=== PATIENT | male | born 1970 | race Two or more races ===

== ENCOUNTER 2024-10-25 08:53 | Outpatient (AMB) | payer MEDICAID, SELFPAY ==
--- NOTE | 2024-10-04 09:55 | PD.ORTHCLVIS ---
Vital signs 10/25/24 09:38 Height 1.73 m Height Method Stated Weight 112.094 kg Weight Measurement Method Standing Scale BMI 37.5 BP 113/76 Blood Pressure Source Automatic Cuff Blood Pressure Location Right Upper Arm Position Sitting Respiration 18 Pulse 80 Pulse Source Monitor Temp 98.0 F Temp Source Temporal Artery Scan Pulse Oximetry (%) 97 Oxygen Delivery Method Room Air Med/Allergies Allergies & Medications Allergies No Known Drug Allergies Allergy (Verified 10/25/24 09:38) Medication Reconciliation baclofen 10 mg tablet 10 mg PO QHS 10/25/24 [History Confirmed 10/25/24] ibuprofen 800 mg tablet 800 mg PO Q8H 10/25/24 [History Confirmed 10/25/24] semaglutide 1 mg/dose (4 mg/3 mL) subcutaneous pen injector (Ozempic) 1 mg subcut QWEEK 10/25/24 [History Confirmed 10/25/24] Subjective Visit Visit for: new patient and hip Immunization / Flu Flu Vaccine in the Last 12 Months: No Flu Vaccine Exclusion Criteria: Refused by Patient History of Present Illness Chief complaint: 2 MONTH FRACTURE OF HIP Date of injury / onset of symptoms: 2 MONTHS AGO Patient is a 54-year-old male who had a pubic root fracture of his right hip after a 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 He reports that he was using crutches for 2 weeks and then started Walking Subsequently. He did not go to the ER. He was found to have a acetabular pubic root fracture with living water. It has been 7 weeks since that injury. He reports he has no pain at all Personal History Occupation: UNEMPLOYED Pain Pain level (0-10): 8 Pain duration: COMES AND GOES Pain location: groin, inside (medial), outside (lateral), anterior and posterior Pain quality: sharp, dull and aching Pain timing: increases with activity Associated signs & symptoms: weakness Ambulatory data Ambulatory device: none Treatments Improvement with previous injections: No Improvement with PT: No Improvement with NSAIDS: no Review of Systems Review of Systems: All systems negative unless otherwise noted in HPI. Exam Exam Patient is in no acute distress and is cooperative with the examination today. Breathing is nonlabored. In no respiratory distress. Patient has no paraspinal tenderness. Spinal deformity [cannot] be appreciated. The gait of the patient is [nonantalgic] Bilateral extremities were evaluated and demonstrates sensation intact to light touch. Palpable pedal pulses are present. No significant edema is present. Bilateral knees were examined and the patient has full strength and range of motion.. The left hip was examined. Patient was able to flex to 90 degrees, adduct to 30 degrees, abduct to 40 degrees, internally rotate to 20 degrees, and externally rotate to 20 degrees. Patient has a negative logroll. Stinchfield is negative. The patient is nontender diffusely to touch. The right hip was examined. Patient was able to flex to [90] degrees, adduct to [30] degrees, abduct to [40] degrees, internally rotate to [20] degrees, and externally rotate to [20] degrees. Patient has a [negative] logroll. The stinchfield is [negative]. The CT from [facility] imaging was reviewed by me today. This demonstrates a right pubic root fracture. It is nondisplaced but quite comminuted. Assessment and Plan Problem List (1) Closed right acetabular fracture: Status: Acute Plan: Patient is a 54-year-old male with a right acetabular fracture several weeks ago. He did not seek any treatment initially and did not go to the emergency room. He was found to have a comminuted right pubic root fracture. We will treat this nonoperatively likely as it is 7 weeks since the injury. He is walking and has no pain at all. I would like to see his x-rays to see if this has shifted at all Plan We will see him back after his x-rays are done Office Procedures GNS Level of Care Nursing/Assessment Patient Status: Established Patient Nursing Assessment/Reassesment: Medication Reconciliation, Update PMH in EMR and Vital Signs Coordination of Care: Complex Care and Chronic Disease 1-5, Education Complex Pt/Fam, Consent,records obtained, informed consent, Results/Orders obtained and Staff clarify orders Special Needs: Language special needs Established Patient Charge Established Patient Point Assignment: 95 Established Patient Point Charge: EP Level 3 (80-115) Past Medical History Past Medical History Have you ever been diagnosed with any of the following: Respiratory Problems Smoking: No Smoking Exposure: No Endocrine Problems Diabetes Mellitus Type 2: Yes
[2024-10-25 09:38] VITALS: BP 113/76; PULSE 80; RESP 18; TEMP 36.7; O2SAT 97; BMI 37.5
== END 2024-10-25 09:56 | disposition home or self-care (01) ==
LOC: HODSRG 08:53
PROVIDERS: Supervising Provider Orthopaedic Surgery Adult Reconstructive Orthopaedic Surgery; Visit Provider Orthopaedic Surgery Adult Reconstructive Orthopaedic Surgery
DX: S32.401A Unspecified fracture of right acetabulum, initial encounter for closed fracture (principal); W17.89XA Other fall from one level to another, initial encounter; Y93.89 Activity, other specified; E11.9 Type 2 diabetes mellitus without complications
CPT/HCPCS: 99213; G0463

== ENCOUNTER → 2024-10-29 | Outpatient (CLI) | payer MEDICAID, SELFPAY ==
--- NOTE | 2024-10-29 | XR_ITS ---
Examination: Pelvis 3 views Technique one AP THORPE SALVATORE pelvis 3 views Exam date and time: October 29, 2024 1326 hours INDICATIONS: History pelvis fracture FINDINGS: Minimal bilateral hip osteoarthritis No hip fractures or hip dislocations Old fracture right inferior pubic ramus No acute pelvic fractures IMPRESSION: No acute pelvic fracture
== END | disposition home or self-care (01) ==
LOC: CDIM 10:53
PROVIDERS: PCP Nurse Practitioner Family; Referring Provider Orthopaedic Surgery Adult Reconstructive Orthopaedic Surgery; Visit Provider Orthopaedic Surgery Adult Reconstructive Orthopaedic Surgery
DX: Z87.81 Personal history of (healed) traumatic fracture (principal)
CPT/HCPCS: 72190

== ENCOUNTER 2024-11-08 15:34 | Outpatient (AMB) | payer MEDICAID, SELFPAY ==
--- NOTE | 2024-11-08 15:36 | PD.ORTHCLVIS ---
Vital signs 11/08/24 15:37 Height 1.73 m Height Method Stated Weight 112.151 kg Weight Measurement Method Standing Scale BMI 37.4 BP 105/68 Blood Pressure Source Automatic Cuff Blood Pressure Location Left Upper Arm Position Sitting Respiration 18 Pulse 65 Pulse Source Monitor Temp 98.0 F Temp Source Temporal Artery Scan Pulse Oximetry (%) 95 Oxygen Delivery Method Room Air Med/Allergies Allergies & Medications Allergies No Known Drug Allergies Allergy (Verified 11/08/24 15:37) Medication Reconciliation baclofen 10 mg tablet 10 mg PO QHS 10/25/24 [History Confirmed 11/08/24] ibuprofen 800 mg tablet 800 mg PO Q8H 10/25/24 [History Confirmed 11/08/24] semaglutide 1 mg/dose (4 mg/3 mL) subcutaneous pen injector (Ozempic) 1 mg subcut QWEEK 10/25/24 [History Confirmed 11/08/24] Exam Exam Patient is in no acute distress and is cooperative with the examination today. Breathing is nonlabored. In no respiratory distress. Patient has no paraspinal tenderness. Spinal deformity [cannot] be appreciated. The gait of the patient is [nonantalgic] Bilateral extremities were evaluated and demonstrates sensation intact to light touch. Palpable pedal pulses are present. No significant edema is present. Bilateral knees were examined and the patient has full strength and range of motion.. The left hip was examined. Patient was able to flex to 90 degrees, adduct to 30 degrees, abduct to 40 degrees, internally rotate to 20 degrees, and externally rotate to 20 degrees. Patient has a negative logroll. Stinchfield is negative. The patient is nontender diffusely to touch. The right hip was examined. Patient was able to flex to [90] degrees, adduct to [30] degrees, abduct to [40] degrees, internally rotate to [20] degrees, and externally rotate to [20] degrees. Patient has a [negative] logroll. The stinchfield is [negative]. The CT from [facility] imaging was reviewed by me today. This demonstrates a right pubic root fracture. It is nondisplaced but quite comminuted. X-rays demonstrate a pelvis with no evidence of fractures on the 2-day views. Assessment and Plan Problem List (1) Closed right acetabular fracture: Status: Acute Plan: Patient is a 54-year-old male with a right acetabular fracture several weeks ago. He did not seek any treatment initially and did not go to the emergency room. He was found to have a comminuted right pubic root fracture. We will treat this nonoperatively likely as it is 7 weeks since the injury. He is doing well and has no pain at all. I would not recommend physical therapy as he is already exceeding expectations and has no pain at all Plan We will see him back after his x-rays are done Office Procedures GNS Level of Care Nursing/Assessment Patient Status: Established Patient Nursing Assessment/Reassesment: Medication Reconciliation, Update PMH in EMR and Vital Signs Coordination of Care: Complex Care and Chronic Disease 1-5, Education Complex Pt/Fam, Consent,records obtained, informed consent, 1 Ins Authorization, Results/Orders obtained and Staff clarify orders Special Needs: Language special needs Established Patient Charge Established Patient Point Assignment: 110 Established Patient Point Charge: Level 3 (80-115) MA Intake Visit Data Collection New Patient or Established: Established Patient (seen at [facility] within 3 years) Reason for Visit:: XRAYS RESULTS Seen by Clinical Staff ONLY (RN/MA): No [employer]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 PCP or OBGYN visit in last 3 months: Yes Hx Now: No Do You Feel Safe at Home: Yes Authorities Contacted: N/A Questionairres Past Medical History Past Medical History Have you ever been diagnosed with any of the following: Respiratory Problems Smoking: No Smoking Exposure: No Endocrine Problems Diabetes Mellitus Type 2: Yes Subjective Visit Visit for: follow up visit and x-rays Immunization / Flu Flu Vaccine in the Last 12 Months: No Flu Vaccine Exclusion Criteria: No Exclusion Criteria History of Present Illness Chief complaint: right acetabular fracture Patient is a 54-year-old male status post acetabular fracture that was treated nonoperatively. He is doing well. He has no pain. He is walking without any difficulty. He is here for x-ray follow-up of his fracture Pain Pain level (0-10): 0 Ambulatory data Ambulatory device: none Treatments Improvement with previous injections: No Improvement with PT: No Improvement with NSAIDS: no Review of Systems Review of Systems: All systems negative unless otherwise noted in HPI.
[2024-11-08 15:37] VITALS: BP 105/68; PULSE 65; RESP 18; TEMP 36.7; O2SAT 95; BMI 37.4
== END 2024-11-08 15:38 | disposition home or self-care (01) ==
LOC: HODSRG 15:34
PROVIDERS: PCP Nurse Practitioner Family; Referring Provider Nurse Practitioner Family; Supervising Provider Orthopaedic Surgery Adult Reconstructive Orthopaedic Surgery; Visit Provider Orthopaedic Surgery Adult Reconstructive Orthopaedic Surgery
DX: S32.401D Unspecified fracture of right acetabulum, subsequent encounter for fracture with routine healing (principal); X58.XXXD Exposure to other specified factors, subsequent encounter; E11.9 Type 2 diabetes mellitus without complications
CPT/HCPCS: 99213; G0463

== ENCOUNTER → 2025-01-23 | Outpatient (CLI) | payer MEDICAID, SELFPAY ==
--- NOTE | 2025-01-23 10:03 | XR_ITS ---
Examination: Hand, left 3 views Technique: Hand AP, oblique, lateral 3 views Date and time of exam: February 16, 2025 1004 hours INDICATIONS: Left hand pain beginning 3 weeks ago. FINDINGS: Mild juxta-articular bone demineralization Moderate osteoarthritis first carpometacarpal joint Mild osteoarthritis interphalangeal joints No erosive arthritis No fracture IMPRESSION: Moderate osteoarthritis first carpometacarpal joint
== END | disposition home or self-care (01) ==
PROVIDERS: PCP Family Medicine; Referring Provider Nurse Practitioner Family; Visit Provider Nurse Practitioner Family
DX: M18.12 Unilateral primary osteoarthritis of first carpometacarpal joint, left hand (principal)
CPT/HCPCS: 73130

== ENCOUNTER → 2025-03-18 | Outpatient (CLI) | payer MEDICAID, SELFPAY ==
--- NOTE | 2025-03-18 11:15 | XR_ITS ---
Examination: Abdomen sonogram, Limited Date and time of exam: March 18, 2025 1207 hours INDICATIONS: Fatty liver diagnosis several months ago Technique: Real-time [place] scale transabdominal sonographic images of the upper abdomen obtained. Findings: Normal gallbladder Normal common bile duct 0.3 cm Pancreatic head obscured by bowel gas Liver 13.2 cm fatty infiltration no focal liver lesions Normal hepatopedal portal venous flow Patent IVC IMPRESSION: Normal gallbladder Fatty liver
== END | disposition home or self-care (01) ==
PROVIDERS: PCP Nurse Practitioner Family; Referring Provider Nurse Practitioner Family; Visit Provider Nurse Practitioner Family
DX: K76.0 Fatty (change of) liver, not elsewhere classified (principal)
CPT/HCPCS: 76705